=== PATIENT | female | born 1935 | race African-American/Black ===

== ENCOUNTER 2023-07-30 10:24 | Emergency (ER) | payer SELFPAY ==
[~2023-07-30] VITALS: Ht 162.6 cm; Wt 75.0 kg
[2023-07-30 10:25] VITALS: O2SAT 98
[2023-07-30 10:26] VITALS: BP 89/57; PULSE 97; RESP 36; TEMP 98.6
[2023-07-30 11:27] LABS: BASOPHILS % 0.7 % (0.0-2.0); EOSINOPHILS % 1.6 % (0.0-5.0); HEMATOCRIT. 40.1 % (36.0-48.0); HEMOGLOBIN. 12.8 g/dL (12.0-16.0); LYMPHOCYTES % 19.5 % (20.0-50.0); MEAN CORPUSCULAR HEMOGLOBIN 30.6 pg (28.0-32.0); MEAN CORPUSCULAR HGB CONC 31.8 g/dL (31.0-37.0); MEAN CORPUSCULAR VOLUME 96.3 fL (81.0-99.0); MEAN PLATELET VOLUME 8.7 fl (7.4-10.4); MONOCYTES % 4.2 % (2.0-8.0); PLATELET 308 x1000/uL (130-400); RED BLOOD CELL COUNT 4.16 mill/uL (4.2-5.4); RED CELL DISTRIBUTION WIDTH 13.9 % (11.6-14.6); WHITE BLOOD COUNT 13.4 x1000/uL (4.5-11.0)
[2023-07-30 11:34] LABS: CHLORIDE 115 mEq/L (98-107); INDEX HEMOLYSI 4 (1-3); INDEX ICTERIC 1 (1-4); INDEX LIPEMIC 1 (1-3); SODIUM 143 mEq/L (136-145)
[2023-07-30 11:40] LABS: POTASSIUM 3.9 mEq/L (3.5-5.1)
[2023-07-30 11:41] LABS: ALANINE AMINOTRANSFERASE 188 IU/L (13-61); ALBUMIN 2.8 g/dL (3.4-5.0); ASPARTATE AMINOTRANSFERASE 279 IU/L (15-37); BILIRUBIN TOTAL 1.3 mg/dL (0.1-1.0); CARBON DIOXIDE 19 mEq/L (21-32); CREATININE 1.8 mg/dL (0.6-1.3); GLUCOSE 176 mg/dL (70-105); PROTEIN TOTAL 7.8 g/dL (6.0-8.3); UREA NITROGEN BLOOD 30 mg/dL (7-21)
[2023-07-30 11:45] LABS: LACTIC ACID 6.4 mmol/L (0.4-2.0)
== END 2023-07-30 11:45 ==
LOC: ER 10:24
DX: I46.9 Cardiac arrest, cause unspecified (principal); R10.9 Unspecified abdominal pain; I10 Essential (primary) hypertension
CPT/HCPCS: 80053; 82962; 83605; 85025; 36415; 84145; 71045; 31500; 93005; 99291; Z7610 ×4